=== PATIENT | male | born 1950 ===

== ENCOUNTER 2018-01-18 12:22 | Inpatient (IN) | payer MEDICARE ==
[2017-06-30 12:35] VITALS: BMI 19.5
[2018-01-18] MEDS ORDERED: Bupivacaine Liposomal Inj 20 ml INFIL ONE (12:59)
[2018-01-18] MEDS ORDERED: Bacitracin 150,000 UNIT in Sodium Chloride 0.9% Irrig 3,000 ML IR SCH (13:00)
--- NOTE | 2018-01-18 13:06 | CP.PCM.HP ---
History of Present Illness - History of Present Illness History of Present Illness: 68M with left hip DJD failed conservative mgmt and elected for THR. Had successful right THR without complications 07/[address] Barragan. PMH: GERD, depression, + smoker, cessation advised PSH: as above, B cataracts No recent illness No history bleeding/clotting disorder, stents, seizure disorder Present on Admission - Present on Admission Any Indicators Present on Admission: No Review of Systems - Review of Systems All systems: reviewed and no additional remarkable complaints except - Musculoskeletal Musculoskeletal: As Per HPI Past Patient History - Past Medical History & Family History Past Medical History?: Yes Past Family History: Reviewed and not pertinent - Past Social History Smoking Status: Heavy Smoker > 10 Cigarettes Daily - CARDIAC Hx Cardiac Disorders: No Hx Pacemaker: No - PULMONARY Hx Respiratory Disorders: Yes Hx Asthma: Yes - NEUROLOGICAL Hx Neurological Disorder: No Hx Paralysis: No - HEENT Hx HEENT Problems: Yes (eyeglasses) Hx Cataracts: Yes - RENAL Hx Chronic Kidney Disease: No - ENDOCRINE/METABOLIC Hx Endocrine Disorders: No - HEMATOLOGICAL/ONCOLOGICAL Hx Blood Disorders: No Hx Blood Transfusions: No - INTEGUMENTARY Hx Dermatological Problems: No Other/Comment: r hip surgical dressing dry and intact - MUSCULOSKELETAL/RHEUMATOLOGICAL Hx Musculoskeletal Disorders: Yes Hx Arthritis: Yes Hx Falls: No Hx Osteoarthritis: Yes Hx Unsteady Gait: Yes (cane) - GASTROINTESTINAL Hx Gastrointestinal Disorders: No - GENITOURINARY/GYNECOLOGICAL Hx Genitourinary Disorders: No Hx Reproductive Disorders: No - PSYCHIATRIC Hx Anxiety: Yes Hx Depression: Yes Hx Emotional Abuse: No Hx Physical Abuse: No Hx Substance Use: No - SURGICAL HISTORY Hx Surgeries: Yes Hx Cataract Extraction: Yes Hx Joint Replacement: Yes (right hip) Other/Comment: right hip replacement 07/13/17 - ANESTHESIA Hx Anesthesia: Yes Hx Anesthesia Reactions: No Hx Malignant Hyperthermia: No Has any member of the family had a problem w/ anesthesia?: (unknown) Meds Allergies/Adverse Reactions: Allergies Allergy/AdvReac Type Severity Reaction Status Date / Time acetaminophen [From Percocet] Allergy ITCHING Verified 07/14/17 11:03 oxycodone [From Percocet] Allergy ITCHING Verified 12/28/17 10:05 Physical Exam - Constitutional Appears: Well, No Acute Distress - Head Exam Head Exam: ATRAUMATIC - Respiratory Exam Respiratory Exam: NORMAL BREATHING PATTERN - Expanded Lower Extremities Exam Left Hip exam: normal inspection Ankle exam: FULL ROM, NORMAL INSPECTION - Neurological Exam Neurological exam: Alert, Oriented x3 - Psychiatric Exam Psychiatric exam: Normal Affect, Normal Mood - Skin Skin Exam: Dry, Intact, Normal Color, Warm Assessment & Plan (1) Primary osteoarthritis of left hip Assessment and Plan: NPO T&S for THR risks/benefits/alt explained to pt in detail, verbalizes understanding and consents to procedure d/w Dr. Barragan, agrees with above Status: Acute
[2018-01-18] MEDS ORDERED: ceFAZolin 1 gm in NS 2 GM/200 ML BAG IVPB ONE (15:49)
[2018-01-18] MEDS ORDERED: Propofol 10 mg/ml Inj (20 ML) ONE (15:55)
[2018-01-18] MEDS ORDERED: Midazolam 2 MG/2 ML VIAL ONE (15:55)
[2018-01-18] MEDS: Tranexamic Acid 1,000 MG in Sodium Chloride 0.9% 50 ML IV SCH ×3 (16:20→19:15)
[2018-01-18] MEDS ORDERED: Succinylcholine Chloride 20 mg/ml Syr (5 ml) IV ONE (16:52)
[2018-01-18] MEDS ORDERED: Rocuronium 10 mg/ml (10 ml) ONE ×2 (16:52→18:07)
[2018-01-18] MEDS ORDERED: Vancomycin 1 g Inj ONE (18:32)
[2018-01-18] MEDS ORDERED: ePHEDrine 50 mg/ml Inj ONE (19:28)
--- NOTE | 2018-01-18 19:41 | CP.PCM.CON ---
<Radha Miramontes - Last Filed: 01/18/18 22:15> History of Present Illness - History of Present Illness History of Present Illness: Medicine Consult 68M with past medical history of GERD, depression, asthma, and left hip DJD that failed conservative management POD 0 of total hip replacement. Medicine consulted for management of GERD and asthma. Patient seen and examined at bedside. Patient is very drowsy post op. Patient has pain in left hip, otherwise no complaints. Patient denies any headache, chest pain, abdominal pain , nausea, vomiting, diarrhea, or constipation. History was obtained from patient and niece. All: Acetaminophen, oxycodone Psurg: cataracts, right total hip replacement 07/[address] Yung Tolliverx: mom:HTN, Dad: DMII, arthritis social hx: smokes 12 cigarettes per day for 40+ years, denies alcohol or drugs, lives with sister used to work in a factory Review of Systems - Review of Systems Review of Systems: lethargic due to pain meds - EENT Eyes: absent: Blurred Vision - Cardiovascular Cardiovascular: absent: Chest Pain, Dyspnea - Gastrointestinal Gastrointestinal: absent: Constipation, Diarrhea, Nausea, Vomiting - Genitourinary Genitourinary: absent: Difficulty Urinating - Musculoskeletal Additional comments: left hip pain Past Patient History - Past Medical History & Family History Past Medical History?: Yes Past Family History: Reviewed and not pertinent - Past Social History Smoking Status: Heavy Smoker > 10 Cigarettes Daily - CARDIAC Hx Cardiac Disorders: No Hx Pacemaker: No - PULMONARY Hx Respiratory Disorders: Yes Hx Asthma: Yes - NEUROLOGICAL Hx Neurological Disorder: No Hx Paralysis: No - HEENT Hx HEENT Problems: Yes (eyeglasses) Hx Cataracts: Yes - RENAL Hx Chronic Kidney Disease: No - ENDOCRINE/METABOLIC Hx Endocrine Disorders: No - HEMATOLOGICAL/ONCOLOGICAL Hx Blood Disorders: No Hx Blood Transfusions: No - INTEGUMENTARY Hx Dermatological Problems: No Other/Comment: r hip surgical dressing dry and intact - MUSCULOSKELETAL/RHEUMATOLOGICAL Hx Musculoskeletal Disorders: Yes Hx Arthritis: Yes Hx Falls: No Hx Osteoarthritis: Yes Hx Unsteady Gait: Yes (cane) - GASTROINTESTINAL Hx Gastrointestinal Disorders: No - GENITOURINARY/GYNECOLOGICAL Hx Genitourinary Disorders: No Hx Reproductive Disorders: No - PSYCHIATRIC Hx Anxiety: Yes Hx Depression: Yes Hx Emotional Abuse: No Hx Physical Abuse: No Hx Substance Use: No - SURGICAL HISTORY Hx Surgeries: Yes Hx Cataract Extraction: Yes Hx Joint Replacement: Yes (right hip) Other/Comment: right hip replacement 07/13/17 - ANESTHESIA Hx Anesthesia: Yes Hx Anesthesia Reactions: No Hx Malignant Hyperthermia: No Has any member of the family had a problem w/ anesthesia?: (unknown) Meds Allergies/Adverse Reactions: Allergies Allergy/AdvReac Type Severity Reaction Status Date / Time acetaminophen [From Percocet] Allergy ITCHING Verified 07/14/17 11:03 oxycodone [From Percocet] Allergy ITCHING Verified 12/28/17 10:05 - Medications Medications: Current Medications Clonazepam (Klonopin) 0.5 mg PO HS PRN PRN Reason: Insomnia Pantoprazole Sodium (Protonix Ec Tab) 40 mg PO DAILY [facility] Physical Exam - Constitutional Appears: Non-toxic, No Acute Distress - Head Exam Head Exam: ATRAUMATIC, NORMAL INSPECTION, NORMOCEPHALIC - Eye Exam Eye Exam: EOMI, Normal appearance - ENT Exam ENT Exam: Mucous Membranes Moist - Respiratory Exam Respiratory Exam: Clear to Auscultation Bilateral, NORMAL BREATHING PATTERN - Cardiovascular Exam Cardiovascular Exam: REGULAR RHYTHM, RRR, +S1, +S2 - GI/Abdominal Exam GI & Abdominal Exam: Normal Bowel Sounds, Soft, Tenderness - Extremities Exam Additional comments: left hip in dressing - Neurological Exam Neurological exam: Alert, Oriented x3 - Psychiatric Exam Psychiatric exam: Normal Affect, Normal Mood - Skin Skin Exam: Intact, Normal Color, Warm Results - Vital Signs Recent Vital Signs: Last Vital Signs Temp 97.8 F 01/18/18 12:27 Pulse 65 01/18/18 12:27 Resp 18 01/18/18 12:27 BP 134/76 01/18/18 12:27 Pulse Ox 98 01/18/18 12:27 - Labs Labs: Laboratory Results - last 24 hr 01/18/18 13:25 Blood Type O POSITIVE Antibody Screen Negative Assessment & Plan - Assessment and Plan (Free Text) Assessment: Total Left Hip Replacement POD 0 management as per ortho Ancef 2gm q8h Dialudid .5mg q4h prn Reglan 10mg ivp prn Zofran 4mg ivp prn NS at 50cc/hr GERD Protonix 40mg po daily Asthma Duonebs q6h prn for wheezing Insomnia Klonopin .5mg po hs prn- held 2 Dilaudid Prophylaxis Protonix 40mg po daily <Dylon Johnson - Last Filed: 01/19/18 06:31> Meds - Medications Medications: Current Medications Albuterol/Ipratropium (Duoneb 3 Mg/0.5 Mg (3 Ml) Ud) 3 ml INH RQ6 PRN PRN Reason: Wheezing Clonazepam (Klonopin) 0.5 mg PO HS PRN PRN Reason: Insomnia Docusate Sodium (Colace) 100 mg PO BID [facility] Enoxaparin Sodium (Lovenox) 40 mg SC Q24H [facility] Hydromorphone HCl (Dilaudid) 0.5 mg IVP Q4H PRN PRN Reason: Pain, severe (8-10) Cefazolin Sodium 2 gm/ Sodium (Chloride) 100 mls @ 100 mls/hr IVPB Q8H [facility] PRN Reason: Protocol Last Admin: 01/19/18 01:11 Dose: 100 mls/hr Sodium Chloride (Sodium Chloride 0.9%) 1,000 mls @ 50 mls/hr IV .Q20H [facility] Last Admin: 01/18/18 22:00 Dose: Not Given Pantoprazole Sodium (Protonix Ec Tab) 40 mg PO DAILY [facility] Results - Vital Signs Recent Vital Signs: Last Vital Signs Temp 97.3 F L 01/19/18 04:27 Pulse 67 01/19/18 04:27 Resp 20 01/19/18 04:27 BP 94/58 L 01/19/18 04:27 Pulse Ox 97 01/19/18 04:27 - Labs Labs: Laboratory Results - last 24 hr 01/18/18 13:25 Blood Type O POSITIVE Antibody Screen Negative Assessment & Plan - Date & Time Date: 01/19/18 (I have seen and examined the patient. I agree with the findings and plan of care as documented by Dr. Miramontes. Patient s/p total left hip replacement. Management as per ortho. Consulted for history of asthma and insomnia. Continue home meds. Monitor for acute changes.) Time: 06:29 Attending/Attestation - Attestation I have personally seen and examined this patient.: Yes I have fully participated in the care of the patient.: Yes I have reviewed all pertinent clinical information: Yes
[2018-01-18] MEDS ORDERED: Neostigmine Methylsulfate 3mg/3ml Syringe IV ONE (19:43)
[2018-01-18] MEDS: HYDROmorphone 0.5 mg/0.5 ml ISec IVP PRN ×2 (20:20→20:35)
[2018-01-18] MEDS ORDERED: Albuterol-Ipratrop 3 mg / 0.5 (3 ml) UD INH PRN (21:27)
[2018-01-18] MEDS: Sodium Chloride 0.9% 1,000 ML IV SCH (22:00)
[2018-01-19] MEDS: ceFAZolin 2 GM in Sodium Chloride 0.9% 100 ML IVPB SCH ×3 (01:11→17:56)
--- NOTE | 2018-01-19 05:27 | OP ---
Copied To: Toy Barragan MD Attending MD: Toy Barragan MD PROCEDURE DATE: 01/18/2018 PREOPERATIVE DIAGNOSIS: Left hip arthritis. POSTOPERATIVE DIAGNOSIS: Left hip arthritis. PROCEDURE: Left total hip arthroplasty. SURGEON: Toy Barragan MD ASSISTANTS: Dr. Barragan was assisted by Ebony Lew, physician front office assistant and Phyllis Gavin, physician front office assistant. Both Ms. Lew and Ms. Gavin were scrubbed and present throughout the entire case and assisted in patient positioning, retraction, and wound closure. ANESTHESIA: General. COMPLICATIONS: None. ESTIMATED BLOOD LOSS: 350 mL. IMPLANT: Biomet dual mobility total hip. INDICATIONS FOR PROCEDURE: This is a 68-year-old gentleman who is presenting with longstanding left hip pain. Clinical examination reveals pain with loss of active internal and external rotation, pain with passive internal rotation. Radiographic examination was consistent with advanced degenerative joint disease of the left hip. After a period of failed nonsurgical management, recommendations were for left total hip arthroplasty. The risks, benefits and alternatives of the procedure were discussed with the patient, and informed consent was obtained. OPERATIVE PROCEDURE: After the surgical site was finally verified in the preoperative holding area, the patient was taken to the operating room and placed in supine on the operating table. After administration of general anesthesia, the patient received 2 g of Ancef IV. Christensen catheter was inserted. The patient was positioned in the lateral decubitus position with the left hip up towards the ceiling. Care was taken to make sure all bony prominences and nerves were well padded and protected. Venodyne boot was placed on the nonoperative extremity. Axillary roll was placed in the right axilla, and the left lower extremity was prepped and draped in the usual sterile fashion. The bony landmarks were identified about the left hip, and approximately 9-cm curvilinear incision was made above the proximal femur. Soft tissues were dissected sharply down to the fascia. The fascia was incised and a Charnley retractor was placed. The short external rotators were tagged, resected off the proximal femur. T-type capsulotomy was performed, and the hip was dislocated. Based on a preoperative template, our femoral neck resection was performed. Next, femoral head was removed and passed off the field as a specimen. At this point, attention was directed to the acetabulum. Anterior capsulotomy was performed and once the acetabulum was adequately exposed, acetabulum was reamed sequentially to allow for a 54-mm Press-Fit cup. Care was taken to maintain proper height and acetabular version. A trial cup was placed and satisfied. The trial was removed and hip was pulse lavaged with antibiotic saline solution. The bony surfaces were dried, and the actual cup was then impacted into place again making to sure maintain proper height and version. The cup was noted to be stable, and the cup was further fixed using an additional screw into the pelvis. At this point, the actual metal liner from the dual mobility cup was then impacted into place, and the attention was directed to the femur. A starting reamer was used to enter the medullary canal of the proximal femur, and the medullary canal of the proximal femur was then broached sequentially to allow for 11-mm Press-Fit collarless stem. trial stem and trial neck and head in place, the hip was reduced and taken through a range of motion and was noted to be stable with approximately equal limb length. At this point, the hip was dislocated. The trial implants were removed. Hip joint was once again pulse lavaged with antibiotic saline solution, and actual stem was impacted into place. Actual head was then impacted over the stem, and the hip was reduced. Again, the hip was taken through the range of motion and was noted to be stable to have approximately equal limb length. At this point, the wound was irrigated and capsule was closed to the bone using #1 Vicryl suture. The short external rotators were also repaired using #1 Vicryl suture. The deep fascia was closed using #1 Vicryl suture. The subcutaneous tissue was closed using 2-0 Vicryl, and the skin was closed using giuliana. A [place] incisional wound VAC dressing was applied. An abduction pillow was placed. The patient was transferred supine, awakened, and taken to recovery room in stable condition. Toy Barragan MD
[2018-01-19] MEDS: HYDROmorphone 0.5 mg/0.5 ml ISec IVP PRN ×3 (07:08→22:34)
[2018-01-19 07:55] LABS: MEAN CELL VOLUME 93.2 fL (80.0-94.0); MEAN CORPUSCULAR HEMOGLOBIN 32.1 pg (27.0-31.0); MEAN CORPUSCULAR HGB CONC 34.5 g/dL (33.0-37.0); MEAN PLATELET VOLUME 8.8 fL (7.2-11.7); RBC 3.11 Mil/uL (4.40-5.90); WHITE BLOOD COUNT 7.7 K/uL (4.8-10.8)
[2018-01-19 08:14] LABS: BLOOD UREA NITROGEN 14 mg/dL (9-20); CALCIUM 8.1 mg/dl (8.6-10.4); GFR AFRICAN-AMERICAN > 60; GFR NON-AFRICAN AMERICAN > 60
[2018-01-19] MEDS ORDERED: Magnesium Sulfate 1 gm in D5W 1 GM/100 ML BAG IVPB ONE (09:00)
[2018-01-19] MEDS: Pantoprazole 40 mg EC Tab PO SCH (09:17)
[2018-01-19] MEDS ORDERED: Enoxaparin 40 mg Syringe SC SCH ×2 (10:00→19:00)
--- NOTE | 2018-01-19 11:11 | RAD ---
PROCEDURE: Left Hip X-ray Radiographs. HISTORY: pt in pacu s/p L THR COMPARISON: None. FINDINGS: BONES: No acute fracture. Status post bilateral total hip replacement. Postoperative changes seen in left thigh status post recent left total hip replacement. The hardware is intact bilaterally. JOINTS: As above SOFT TISSUES: Normal. OTHER FINDINGS: None. IMPRESSION: Left total hip replacement.
[2018-01-19] MEDS: Sodium Chloride 0.9% 1,000 ML IV SCH ×2 (16:00→22:34)
--- NOTE | 2018-01-19 16:42 | CP.PCM.PN ---
Subjective - Date & Time of Evaluation Date of Evaluation: 01/19/18 Time of Evaluation: 16:17 - Subjective Subjective: PGY-1 Medicine Progress Note for Dr. Granda's service Patient seen and examined at bedside. Patient reports suprapubic pain, buring sensation when he urinates, and increased urinary frequency. Patient states he feels still full in his bladder even though he has been peeing constantly. Patient denies chest pain, sob, nausea/vomiting, constipation or diarrhea. Objective - Vital Signs/Intake and Output Vital Signs (last 24 hours): Temp Pulse Resp BP Pulse Ox 97.5 F L 77 20 98/51 L 97 01/19/18 07:00 01/19/18 07:00 01/19/18 07:00 01/19/18 07:00 01/19/18 07:00 Intake and Output: 01/19/18 01/19/18 06:59 18:59 Intake Total 1510 800 Output Total 850 Balance 660 800 - Medications Medications: Current Medications Albuterol/Ipratropium (Duoneb 3 Mg/0.5 Mg (3 Ml) Ud) 3 ml INH RQ6 PRN PRN Reason: Wheezing Clonazepam (Klonopin) 0.5 mg PO HS PRN PRN Reason: Insomnia Docusate Sodium (Colace) 100 mg PO BID [facility] Last Admin: 01/19/18 09:17 Dose: 100 mg Enoxaparin Sodium (Lovenox) 40 mg SC Q24H [facility] Hydromorphone HCl (Dilaudid) 0.5 mg IVP Q4H PRN PRN Reason: Pain, severe (8-10) Last Admin: 01/19/18 12:35 Dose: 0.5 mg Cefazolin Sodium 2 gm/ Sodium (Chloride) 100 mls @ 100 mls/hr IVPB Q8H [facility] PRN Reason: Protocol Last Admin: 01/19/18 10:15 Dose: 100 mls/hr Sodium Chloride (Sodium Chloride 0.9%) 1,000 mls @ 50 mls/hr IV .Q20H [facility] Last Admin: 01/18/18 22:00 Dose: Not Given Nicotine (Nicoderm Cq) 1 patch TD DAILY [facility] Last Admin: 01/19/18 09:07 Dose: 1 patch Pantoprazole Sodium (Protonix Ec Tab) 40 mg PO DAILY [facility] Last Admin: 01/19/18 09:17 Dose: 40 mg Pregabalin (Lyrica) 50 mg PO BID [facility] Last Admin: 01/19/18 09:17 Dose: 50 mg - Labs Labs: 01/19/18 07:47 01/19/18 07:47 - Constitutional Appears: Non-toxic - Head Exam Head Exam: NORMAL INSPECTION, NORMOCEPHALIC - Eye Exam Eye Exam: EOMI. absent: Nystagmus, Scleral icterus - Respiratory Exam Respiratory Exam: Clear to Ausculation Bilateral, NORMAL BREATHING PATTERN. absent: Rales, Rhonchi, Wheezes - Cardiovascular Exam Cardiovascular Exam: REGULAR RHYTHM, +S1, +S2 - GI/Abdominal Exam GI & Abdominal Exam: Soft, Tenderness, Normal Bowel Sounds. absent: Distended, Firm - Extremities Exam Extremities Exam: Normal Inspection. absent: Calf Tenderness, Pedal Edema - Back Exam Back Exam: NORMAL INSPECTION. absent: CVA tenderness (L), CVA tenderness (R) - Neurological Exam Neurological Exam: Alert, Awake, Oriented x3 - Psychiatric Exam Psychiatric exam: Normal Affect, Normal Mood - Skin Skin Exam: Intact, Normal Color Assessment and Plan - Assessment and Plan (Free Text) Assessment: Patient is a 68 yo with PMH gerd, asthma, Right hip replacement, and s/p 1 day from left hip replacement is evaluated for increased urinary frequency, dysuria , and suprapubic pain. Plan: Left Hip replacement Ortho Consulted: Dr. Yung Cuetoid 0.5 mg IVP q4h Colace 100mg po bid [facility] UTI Ancef 2gm @ 100mls/hr Pyridium 200mg po tidpc Bladder scan once; if>[address] catheter for insertion Patient states he is not allergic to Tylenol; he states he takes it previously for headaches and leg pain; It was discussed that if he is allergic he can have an adverse reaction that can be life threatening; however patient restates he has used multiple times in past with no adverse reactions Hx of depression Clonazepam 0.5mg po hs Hypomagnesemia Magnesium 1.5 Mag oxide 400mg bid Tobacco use Nicotine 1 patch TD daily [facility] Prophylaxis GI PPx: Protonix 40mg po daily DVT ppx: Lovenox 40mg sc q24h
[2018-01-19] MEDS: Magnesium Oxide 400 mg Tab UD PO SCH (18:36)
[2018-01-19 21:20] LABS: URINE BILIRUBIN NEGATIVE (NEGATIVE); URINE BLOOD NEGATIVE (NEGATIVE); URINE CLARITY Clear (Clear); URINE COLOR Straw (YELLOW); URINE GLUCOSE (UA) NORMAL (Normal); URINE LEUKOCYTE ESTERASE NEG Leu/uL (Negative); URINE PROTEIN NEGATIVE (NEGATIVE); URINE UROBILINOGEN NORMAL mg/dL (0.2-1.0)
[2018-01-20 06:40] LABS: HEMOGLOBIN 10.7 g/dL (12.0-18.0); MEAN CELL VOLUME 92.1 fL (80.0-94.0); MEAN CORPUSCULAR HEMOGLOBIN 32.1 pg (27.0-31.0); MEAN CORPUSCULAR HGB CONC 34.9 g/dL (33.0-37.0); MEAN PLATELET VOLUME 8.9 fL (7.2-11.7); RBC 3.34 Mil/uL (4.40-5.90); RED CELL DISTRIBUTION WIDTH 13.7 % (11.5-14.5); WHITE BLOOD COUNT 9.8 K/uL (4.8-10.8)
[2018-01-20 07:32] LABS: ALB/GLOB RATIO 1.1 (1.0-2.1); ALBUMIN 3.2 g/dL (3.5-5.0); ALT/SGPT 25 U/L (21-72); AST/SGOT 32 U/L (17-59); BLOOD UREA NITROGEN 8 mg/dL (9-20); CALCIUM 8.2 mg/dl (8.6-10.4); GFR AFRICAN-AMERICAN > 60; GFR NON-AFRICAN AMERICAN > 60
--- NOTE | 2018-01-20 07:52 | CP.PCM.PN ---
<Kory Benítez - Last Filed: 01/20/18 14:02> Subjective - Date & Time of Evaluation Date of Evaluation: 01/20/18 Time of Evaluation: 07:52 - Subjective Subjective: Pt seen and examined at bedside. Pt reports burning dysuria. Pt is able to initiate but feel incomplete when urinating. Pt denies CP SOB n/v f/c changes in urine color. Objective - Vital Signs/Intake and Output Vital Signs (last 24 hours): Temp Pulse Resp BP Pulse Ox 97.8 F 94 H 20 110/66 96 01/19/18 23:25 01/19/18 23:25 01/19/18 23:25 01/19/18 23:25 01/19/18 23:25 Intake and Output: 01/20/18 01/20/18 06:59 18:59 Intake Total 2490 Output Total 2800 Balance -310 - Medications Medications: Current Medications Albuterol/Ipratropium (Duoneb 3 Mg/0.5 Mg (3 Ml) Ud) 3 ml INH RQ6 PRN PRN Reason: Wheezing Apixaban (Eliquis) 2.5 mg PO Q12H [facility] Last Admin: 01/19/18 19:22 Dose: 2.5 mg Clonazepam (Klonopin) 0.5 mg PO HS PRN PRN Reason: Insomnia Docusate Sodium (Colace) 100 mg PO BID [facility] Last Admin: 01/19/18 17:57 Dose: 100 mg Hydromorphone HCl (Dilaudid) 0.5 mg IVP Q4H PRN PRN Reason: Pain, severe (8-10) Last Admin: 01/19/18 22:34 Dose: 0.5 mg Magnesium Oxide (Mag-Ox) 400 mg PO BID [facility] Last Admin: 01/19/18 18:36 Dose: 400 mg Nicotine (Nicoderm Cq) 1 patch TD DAILY [facility] Last Admin: 01/19/18 09:07 Dose: 1 patch Pantoprazole Sodium (Protonix Ec Tab) 40 mg PO DAILY [facility] Last Admin: 01/19/18 09:17 Dose: 40 mg Phenazopyridine HCl (Pyridium) 200 mg PO TIDPC [facility] Last Admin: 01/19/18 18:36 Dose: 200 mg Pregabalin (Lyrica) 50 mg PO BID [facility] Last Admin: 01/19/18 17:57 Dose: 50 mg - Labs Labs: 01/20/18 06:32 01/20/18 06:32 - Constitutional Appears: Well, No Acute Distress - Head Exam Head Exam: ATRAUMATIC, NORMAL INSPECTION - Eye Exam Eye Exam: EOMI, Normal appearance. absent: Scleral icterus - ENT Exam ENT Exam: Mucous Membranes Moist - Respiratory Exam Respiratory Exam: Clear to Ausculation Bilateral, NORMAL BREATHING PATTERN - Cardiovascular Exam Cardiovascular Exam: RRR, +S1, +S2 - GI/Abdominal Exam GI & Abdominal Exam: Soft. absent: Tenderness, Organomegaly, Pulsatile Mass - Exam Exam: NORMAL INSPECTION, Bladder Distension - Extremities Exam Extremities Exam: Normal Inspection. absent: Joint Swelling, Pedal Edema, Tenderness - Neurological Exam Neurological Exam: Alert, Awake, CN II-XII Intact, Oriented x3 - Psychiatric Exam Psychiatric exam: Normal Affect - Skin Skin Exam: Intact, Normal Color, Warm Assessment and Plan - Assessment and Plan (Free Text) Assessment: Patient is a 68 yo with PMH gerd, asthma, Right hip replacement, and s/p 2 day from left hip replacement is evaluated for increased urinary frequency, dysuria , and suprapubic pain. Plan: Left Hip replacement Ortho Consulted: Dr. Barragan Dilshaanid 0.5 mg IVP q4h Colace 100mg po bid [facility] UTI UA- neg straight cath today before discharge. Pyridium 200mg po tidpc Bladder scan once; if>[address] catheter for insertion Patient states he is not allergic to Tylenol; he states he takes it previously for headaches and leg pain; It was discussed that if he is allergic he can have an adverse reaction that can be life threatening; however patient restates he has used multiple times in past with no adverse reactions Hx of depression Clonazepam 0.5mg po hs Hypomagnesemia Magnesium 1.5 Mag oxide 400mg bid Tobacco use Nicotine 1 patch TD daily [facility] Prophylaxis GI PPx: Protonix 40mg po daily DVT ppx: Apixaban 2.5mg PO q12 dispo: pt stable for discharge from medical standpoint, signing of consult service <Darryl Zheng - Last Filed: 01/20/18 15:07> Objective - Vital Signs/Intake and Output Vital Signs (last 24 hours): Temp Pulse Resp BP Pulse Ox 98.0 F 82 20 156/81 H 100 01/20/18 08:34 01/20/18 08:34 01/20/18 08:34 01/20/18 08:34 01/20/18 08:34 Intake and Output: 01/20/18 01/20/18 06:59 18:59 Intake Total 2490 Output Total 2800 1300 Balance -310 -1300 - Medications Medications: Current Medications Albuterol/Ipratropium (Duoneb 3 Mg/0.5 Mg (3 Ml) Ud) 3 ml INH RQ6 PRN PRN Reason: Wheezing Apixaban (Eliquis) 2.5 mg PO Q12H [facility] Last Admin: 01/20/18 07:50 Dose: 2.5 mg Clonazepam (Klonopin) 0.5 mg PO HS PRN PRN Reason: Insomnia Docusate Sodium (Colace) 100 mg PO BID [facility] Last Admin: 01/20/18 09:53 Dose: 100 mg Hydromorphone HCl (Dilaudid) 0.5 mg IVP Q4H PRN PRN Reason: Pain, severe (8-10) Last Admin: 01/20/18 14:59 Dose: 0.5 mg Magnesium Oxide (Mag-Ox) 400 mg PO BID [facility] Last Admin: 01/20/18 09:53 Dose: 400 mg Nicotine (Nicoderm Cq) 1 patch TD DAILY [facility] Last Admin: 01/20/18 10:02 Dose: 1 patch Pantoprazole Sodium (Protonix Ec Tab) 40 mg PO DAILY [facility] Last Admin: 01/20/18 09:53 Dose: 40 mg Phenazopyridine HCl (Pyridium) 200 mg PO TIDPC [facility] Last Admin: 01/20/18 14:57 Dose: 200 mg Pregabalin (Lyrica) 50 mg PO BID [facility] Last Admin: 01/20/18 09:53 Dose: 50 mg - Labs Labs: 01/20/18 06:32 01/20/18 06:32 Attending/Attestation - Attestation I have personally seen and examined this patient.: Yes I have fully participated in the care of the patient.: Yes I have reviewed all pertinent clinical information, including history, physical exam and plan: Yes Notes (Text): 01/20/18 15:01 Medical consult: Patient was seen and examined by me. There was one other family member present in the room as well - the patient was ok with other family present The patient was not in any acute distress the patient also explained that he wanted to go home with home services and did not want to go to TCU or [facility]. An RX was left with the case workers for home PT. He reported the pain was controlled as well. Reviewed lab work and it is stable, Hgb is 10.7 - he is currently on PO Eliquis BID. Afebrile. We encouraged incentive spirometry Hopefully he can be discharged soon. thank you Darryl Zheng
[2018-01-20 09:24] LABS: URINE BILIRUBIN NEGATIVE (NEGATIVE); URINE BLOOD NEGATIVE (NEGATIVE); URINE CLARITY Clear (Clear); URINE COLOR Yellow (YELLOW); URINE GLUCOSE (UA) NORMAL (Normal); URINE LEUKOCYTE ESTERASE NEG Leu/uL (Negative); URINE PROTEIN NEGATIVE (NEGATIVE); URINE UROBILINOGEN NORMAL mg/dL (0.2-1.0)
[2018-01-20] MEDS: Magnesium Oxide 400 mg Tab UD PO SCH ×2 (09:53→18:41)
[2018-01-20] MEDS: Pantoprazole 40 mg EC Tab PO SCH (09:53)
[2018-01-20] MEDS: HYDROmorphone 0.5 mg/0.5 ml ISec IVP PRN ×2 (10:15→14:59)
--- NOTE | 2018-01-20 20:41 | CP.PCM.PN ---
Subjective - Date & Time of Evaluation Date of Evaluation: 01/20/18 Time of Evaluation: 07:45 - Subjective Subjective: Patient seen and examined. Sitting up in bed with hip abduction pillow in place. Alert and awake. Patient went into urinary retention post operatively. Patient refused saldivar catheter insertion this am. [place] catheter placed. Patient was straight cathed and after bladder scan showed 471cc. Patient agreed to saldivar insertion. VSS WBC 9.8 Hgb 10.7 L hip: dressings and PICCO removed. Incision clean and intact. There is no erythema or drainage. No signs of cellulitis. Incision cleaned with NSS and light dry dressings applied. Thigh and calf soft and non-tender. NVI distally POD#2 s/p L MANJIT Cont DVT prophylaxis Cont PT Cont saldivar, will d/c tomorrow morning 6am and will monitor before discharge Cont hip abduction pillow Cont incentive spirometer Objective - Vital Signs/Intake and Output Vital Signs (last 24 hours): Temp Pulse Resp BP Pulse Ox 98.0 F 91 H 20 103/62 95 01/20/18 16:00 01/20/18 16:00 01/20/18 16:00 01/20/18 16:00 01/20/18 16:00 Intake and Output: 01/20/18 01/21/18 18:59 06:59 Output Total 1300 Balance -1300 - Medications Medications: Current Medications Albuterol/Ipratropium (Duoneb 3 Mg/0.5 Mg (3 Ml) Ud) 3 ml INH RQ6 PRN PRN Reason: Wheezing Apixaban (Eliquis) 2.5 mg PO Q12H [facility] Last Admin: 01/20/18 18:41 Dose: 2.5 mg Clonazepam (Klonopin) 0.5 mg PO HS PRN PRN Reason: Insomnia Docusate Sodium (Colace) 100 mg PO BID [facility] Last Admin: 01/20/18 18:41 Dose: 100 mg Hydromorphone HCl (Dilaudid) 0.5 mg IVP Q4H PRN PRN Reason: Pain, severe (8-10) Last Admin: 01/20/18 14:59 Dose: 0.5 mg Magnesium Oxide (Mag-Ox) 400 mg PO BID [facility] Last Admin: 01/20/18 18:41 Dose: 400 mg Nicotine (Nicoderm Cq) 1 patch TD DAILY [facility] Last Admin: 01/20/18 10:02 Dose: 1 patch Pantoprazole Sodium (Protonix Ec Tab) 40 mg PO DAILY [facility] Last Admin: 01/20/18 09:53 Dose: 40 mg Phenazopyridine HCl (Pyridium) 200 mg PO TIDPC [facility] Last Admin: 01/20/18 18:41 Dose: 200 mg Pregabalin (Lyrica) 50 mg PO BID [facility] Last Admin: 01/20/18 18:41 Dose: 50 mg - Labs Labs: 01/20/18 06:32 01/20/18 06:32
[2018-01-21] MEDS: HYDROmorphone 0.5 mg/0.5 ml ISec IVP PRN (02:58)
[2018-01-21 06:14] LABS: HEMOGLOBIN 9.4 g/dL (12.0-18.0); MEAN CELL VOLUME 92.1 fL (80.0-94.0); MEAN CORPUSCULAR HEMOGLOBIN 32.1 pg (27.0-31.0); MEAN CORPUSCULAR HGB CONC 34.8 g/dL (33.0-37.0); MEAN PLATELET VOLUME 8.8 fL (7.2-11.7); RBC 2.92 Mil/uL (4.40-5.90); RED CELL DISTRIBUTION WIDTH 13.6 % (11.5-14.5); WHITE BLOOD COUNT 9.6 K/uL (4.8-10.8)
[2018-01-21 07:48] VITALS: BP 97/61; PULSE 78; RESP 20; TEMP 98.2; O2SAT 94
[2018-01-21 08:06] LABS: BLOOD UREA NITROGEN 10 mg/dL (9-20); CALCIUM 7.9 mg/dl (8.6-10.4); GFR AFRICAN-AMERICAN > 60; GFR NON-AFRICAN AMERICAN > 60
[2018-01-21] MEDS: Pantoprazole 40 mg EC Tab PO SCH (09:20)
[2018-01-21] MEDS: Magnesium Oxide 400 mg Tab UD PO SCH (09:20)
--- NOTE | 2018-01-21 11:45 | CP.PCM.PN ---
Subjective - Date & Time of Evaluation Date of Evaluation: 01/21/18 Time of Evaluation: 11:40 - Subjective Subjective: Patient s/p L MANJIT. Alert and awake. Laying in bed. Patient voided post d/c of saldivar VSS WBC 9.6 Hgb 9.4 L hip: Incision clean and intact.No drainage or erythema. Dressing changed. thigh and calf soft and nontender. NVI distally Cont DVT prophylaxis Discharge to home today with home Pt and visiting nurse Will see patient in Dr. Barragan office in 2 weeks Objective - Vital Signs/Intake and Output Vital Signs (last 24 hours): Temp Pulse Resp BP Pulse Ox 98.2 F 78 20 97/61 L 94 L 01/21/18 07:00 01/21/18 07:00 01/21/18 07:00 01/21/18 07:00 01/21/18 07:00 Intake and Output: 01/21/18 01/21/18 06:59 18:59 Intake Total 750 Output Total 1800 Balance -1050 - Medications Medications: Current Medications Albuterol/Ipratropium (Duoneb 3 Mg/0.5 Mg (3 Ml) Ud) 3 ml INH RQ6 PRN PRN Reason: Wheezing Apixaban (Eliquis) 2.5 mg PO Q12H [facility] Last Admin: 01/21/18 06:08 Dose: 2.5 mg Clonazepam (Klonopin) 0.5 mg PO HS PRN PRN Reason: Insomnia Docusate Sodium (Colace) 100 mg PO BID [facility] Last Admin: 01/21/18 09:20 Dose: 100 mg Hydromorphone HCl (Dilaudid) 0.5 mg IVP Q4H PRN PRN Reason: Pain, severe (8-10) Last Admin: 01/21/18 02:58 Dose: 0.5 mg Magnesium Oxide (Mag-Ox) 400 mg PO BID [facility] Last Admin: 01/21/18 09:20 Dose: 400 mg Nicotine (Nicoderm Cq) 1 patch TD DAILY [facility] Last Admin: 01/21/18 09:20 Dose: 1 patch Pantoprazole Sodium (Protonix Ec Tab) 40 mg PO DAILY [facility] Last Admin: 01/21/18 09:20 Dose: 40 mg Phenazopyridine HCl (Pyridium) 200 mg PO TIDPC [facility] Last Admin: 01/21/18 08:07 Dose: 200 mg Pregabalin (Lyrica) 50 mg PO BID [facility] Last Admin: 01/21/18 09:20 Dose: 50 mg - Labs Labs: 01/21/18 06:08 01/21/18 06:08
--- NOTE | 2018-01-24 17:35 | CP.PCM.DIS ---
Provider - Provider Date of Admission: 01/18/18 12:22 Attending physician: Toy Barragan MD Time Spent in preparation of Discharge (in minutes): 30 Hospital Course - Lab Results Lab Results: Micro Results 01/19/18 21:09 Urine,Clean Catch Urine Culture - Final No Growth (<1,000 CFU/ML) Most Recent Lab Values WBC 9.6 K/uL (4.8-10.8) 01/21/18 06:08 RBC 2.92 Mil/uL (4.40-5.90) L 01/21/18 06:08 Hgb 9.4 g/dL (12.0-18.0) L 01/21/18 06:08 Hct 26.9 % (35.0-51.0) L 01/21/18 06:08 MCV 92.1 fL (80.0-94.0) 01/21/18 06:08 MCH 32.1 pg (27.0-31.0) H 01/21/18 06:08 MCHC 34.8 g/dL (33.0-37.0) 01/21/18 06:08 RDW 13.6 % (11.5-14.5) 01/21/18 06:08 Plt Count 155 K/uL (130-400) 01/21/18 06:08 MPV 8.8 fL (7.2-11.7) 01/21/18 06:08 Sodium 135 mmol/L (132-148) 01/21/18 06:08 Potassium 4.0 mmol/L (3.6-5.2) 01/21/18 06:08 Chloride 101 mmol/L (98-107) 01/21/18 06:08 Carbon Dioxide 27 mmol/L (22-30) 01/21/18 06:08 Anion Gap 10 (10-20) 01/21/18 06:08 BUN 10 mg/dL (9-20) 01/21/18 06:08 Creatinine 0.9 mg/dL (0.8-1.5) 01/21/18 06:08 Est GFR ( Amer) > 60 01/21/18 06:08 Est GFR (Non-Af Amer) > 60 01/21/18 06:08 Random Glucose 123 mg/dL (75-110) H 01/21/18 06:08 Calcium 7.9 mg/dl (8.6-10.4) L 01/21/18 06:08 Phosphorus 2.1 mg/dL (2.5-4.5) L 01/20/18 06:32 Magnesium 1.8 mg/dL (1.6-2.3) 01/20/18 06:32 Total Bilirubin 0.8 mg/dL (0.2-1.3) 01/20/18 06:32 AST 32 U/L (17-59) 01/20/18 06:32 ALT 25 U/L (21-72) 01/20/18 06:32 Alkaline Phosphatase 73 U/L (38-126) 01/20/18 06:32 Total Protein 6.0 g/dL (6.3-8.3) L 01/20/18 06:32 Albumin 3.2 g/dL (3.5-5.0) L 01/20/18 06:32 Globulin 2.8 gm/dL (2.2-3.9) 01/20/18 06:32 Albumin/Globulin Ratio 1.1 (1.0-2.1) 01/20/18 06:32 Urine Color Yellow (YELLOW) 01/20/18 09:15 Urine Clarity Clear (Clear) 01/20/18 09:15 Urine pH 7.0 (5.0-8.0) 01/20/18 09:15 Ur Specific [place] 1.005 (1.003-1.030) 01/20/18 09:15 Urine Protein Negative mg/dL (NEGATIVE) 01/20/18 09:15 Urine Glucose (UA) Normal mg/dL (Normal) 01/20/18 09:15 Urine Ketones Trace mg/dL (NEGATIVE) 01/20/18 09:15 Urine Blood Negative (NEGATIVE) 01/20/18 09:15 Urine Nitrate Negative (NEGATIVE) 01/20/18 09:15 Urine Bilirubin Negative (NEGATIVE) 01/20/18 09:15 Urine Urobilinogen Normal mg/dL (0.2-1.0) 01/20/18 09:15 Ur Leukocyte Esterase Neg Nya/uL (Negative) 01/20/18 09:15 Urine WBC (Auto) 5 /hpf (0-5) 01/20/18 09:15 Urine RBC (Auto) 4 /hpf (0-3) H 08/16/18 09:15 Blood Type O POSITIVE 01/18/18 13:25 Antibody Screen Negative 01/18/18 13:25 - Hospital Course Hospital Course: 68M with left hip osteoarthritis failed conservative management and elected for THR. Postoperative imaging demonstrated acceptable position of prosthesis. Medical consultation was requested for post operative medical management. Patient had urinary retention postoperatively, which was monitored with bladder scans and reinsertion of saldivar cath on POD #2. On POD#3, saldivar was removed and patient voided. Patients post operative course was complicated by acute blood loss anemia, hemodynamically stable and well tolerated, no treatment needed. Patient tolerated PT/OT well. Patient received VTE prophylaxis in the form of lovenox and venodynes. Patient also instructed to continue with hip abduction pillow and posterior hip precautions. PT was discharged to home with home PT and a visiting nurse, and continued on Eliquis 2.5mg BID for DVT prophylaxis for 14 days. Patient was WBAT LLE, ambulating with walker, and given instructions for daily dressing changes and to f/u Dr. Barragan within 2 weeks. Discharge Exam - Head Exam Head Exam: ATRAUMATIC, NORMAL INSPECTION - Respiratory Exam Respiratory Exam: NORMAL BREATHING PATTERN - Cardiovascular Exam Cardiovascular Exam: RRR - Extremities Exam Additional comments: L hip: dressing changed. Incision clean and intact. Thigh and calf soft and nontender. NVI distally - Neurological Exam Neurological exam: Alert, Oriented x3 - Psychiatric Exam Psychiatric exam: Normal Affect, Normal Mood Discharge Plan - Discharge Medications Prescriptions: Albuterol HFA [Ventolin HFA 90 mcg/actuation (8 g)] 2 puff IH PRN PRN #1 inhaler PRN Reason: Shortness Of Breath Naproxen [Naprosyn] 500 mg PO DAILY PRN #30 tablet PRN Reason: Pain, Moderate (4-7) Omeprazole 20 mg PO DAILY #30 capsule.dr - Follow Up Plan Instructions: Hip Fracture (DC), Total Hip Replacement (DC), Apixaban, Albuterol, Naproxen, Omeprazole, Managing Pain After Surgery Additional Instructions: Pt will recieve home PT 3x a week Pt will be dischraged with the following medications: -elequis 12.5mg PO bid #24 -Tramadol 50mg PO q4 prn #40 Referrals: Toy Barragan MD [Staff Provider] -
== END 2018-01-21 15:14 | disposition home or self-care (01) | DRG 470 ==
LOC: C.9S 12:22 → C.6T 22:00
PROVIDERS: ADMIT Orthopaedic Surgery; ATTEND Orthopaedic Surgery
PROC: 0SRB0JA Replacement of Left Hip Joint with Synthetic Substitute, Uncemented, Open Approach (ICD-10-PCS; principal; 2018-01-18 17:00)
DX: M16.12 Unilateral primary osteoarthritis, left hip (principal); N39.0 Urinary tract infection, site not specified; F17.210 Nicotine dependence, cigarettes, uncomplicated; G47.00 Insomnia, unspecified; J45.909 Unspecified asthma, uncomplicated; K21.9 Gastro-esophageal reflux disease without esophagitis; Z83.3 Family history of diabetes mellitus; Z96.641 Presence of right artificial hip joint; F32.9 Major depressive disorder, single episode, unspecified; F41.9 Anxiety disorder, unspecified; E83.42 Hypomagnesemia; R33.8 Other retention of urine; Y83.8 Other surgical procedures as the cause of abnormal reaction of the patient, or of later complication, without mention of misadventure at the time of the procedure; N99.89 Other postprocedural complications and disorders of genitourinary system